=== PATIENT | female | born 1980 | race Caucasian/White ===

== ENCOUNTER 2019-07-20 08:43 | Emergency (ER) | payer MEDICAID ==
[2019-07-20] MEDS: KETOROLAC 30 MG INJ IM (09:52)
== END 2019-07-20 10:58 | disposition home or self-care (01) ==
LOC: FTE 08:43
DX: M54.12 Radiculopathy, cervical region (principal); M79.602 Pain in left arm
CPT/HCPCS: 71045; 72040; 81025; 93005; 96372; 99284-25